=== PATIENT | female | born 1990 | race Caucasian/White ===

== ENCOUNTER 2017-12-31 18:51 | Emergency (ER) | payer BC, OTHER ==
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
[2017-12-31 20:25] LABS: BASOPHILS % 0.7 (0.0-1.5); EOSINOPHILS % 1.2 % (0.0-6.8); MEAN CORPUSCULAR HEMOGLOBIN 32.4 pg (28.0-34.0); MEAN CORPUSCULAR VOLUME 96.7 fl (80.0-100.0); MONOCYTES % 3.1 % (0.0-11.0); NEUTROPHILS # 6.3 # k/uL (1.4-7.7)
[2017-12-31 20:39] LABS: eGFR (African) > 60; eGFR (Non-African) > 60
[2017-12-31] MEDS ORDERED: ONDANSETRON HCL/PF 4 MG/ 2ML VIAL IVP ONE (20:52)
[2017-12-31] MEDS ORDERED: KETOROLAC TROMETHAMINE 30 MG/1ML VIAL IVP ONE (20:52)
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
[2017-12-31] MEDS ORDERED: traMADol HCL 50 MG TABLET PO ONE (21:04)
[2017-12-31] MEDS ORDERED: CYCLOBENZAPRINE HCL 5 MG TABLET PO ONE (21:04)
[2017-12-31 21:20] VITALS: BP 111/70
== END 2017-12-31 21:15 | disposition home or self-care (01) ==
LOC: ED 18:51
DX: M79.632 Pain in left forearm (principal); M54.2 Cervicalgia; R07.89 Other chest pain; R51 Headache; V89.2XXA Person injured in unspecified motor-vehicle accident, traffic, initial encounter; Y92.9 Unspecified place or not applicable; Y93.9 Activity, unspecified; Y99.9 Unspecified external cause status
CPT/HCPCS: 70450; 71250; 72125; 73090; 80053; 85025; J1885; J2405; 96374; 96375; 99284; S1016